=== PATIENT | female | born 1980 | race African-American/Black ===

== ENCOUNTER 2019-07-06 00:23 | Emergency (ER) | payer SELFPAY ==
[~2019-07-06] VITALS: Ht 165.1 cm; Wt 69.0 kg
[2019-07-06 00:26] VITALS: BP 128/75
[2019-07-06] MEDS ORDERED: ACETAMINOPHEN 325MG TABLET PO ONE (02:45)
== END 2019-07-06 11:09 | disposition left against medical advice (07) ==
LOC: ER 00:23
DX: R60.0 Localized edema (principal); Z59.0 Homelessness; M25.572 Pain in left ankle and joints of left foot; M79.89 Other specified soft tissue disorders
CPT/HCPCS: 73610; 93970; 99284

== ENCOUNTER 2020-12-15 12:32 | Emergency (ER) | payer MEDICAID ==
[~2020-12-15] VITALS: Ht 180.3 cm; Wt 75.0 kg
[2020-12-15] MEDS ORDERED: HYDROCODONE/ACETAMINOPHEN 5/325MG TABLET PO PRN (13:30)
[2020-12-15] MEDS ORDERED: CEPHALEXIN 250MG CAPSULE PO ONE (13:30)
[2020-12-15 16:08] LABS: EOSINOPHILS % 2.5 % (0.0-5.0); HEMATOCRIT. 29.9 % (36.0-48.0); HEMOGLOBIN. 10.2 g/dL (12.0-16.0); LYMPHOCYTES % 40.3 % (20.0-50.0); MEAN CORPUSCULAR HEMOGLOBIN 32.7 pg (28.0-32.0); MEAN CORPUSCULAR VOLUME 95.5 fL (81.0-99.0); MEAN PLATELET VOLUME 7.7 fl (7.4-10.4); MONOCYTES % 10.9 % (2.0-8.0); NEUTROPHILS % 45.3 % (40.0-76.0); PLATELET 336 x1000/uL (130-400); RED BLOOD CELL COUNT 3.13 mill/uL (4.2-5.4); RED CELL DISTRIBUTION WIDTH 21.8 % (11.6-14.6)
[2020-12-15 16:13] LABS: CHLORIDE 107 mEq/L (98-107)
[2020-12-15 16:18] LABS: C REACTIVE PROTEIN QUANT 2.8 mg/L (0.0-3.0)
[2020-12-15] MEDS ORDERED: CEPH500T MT (16:21)
[2020-12-15] MEDS ORDERED: POTASSIUM CHLORIDE 20MEQ TABLET SR PO ONE (16:30)
[2020-12-15 16:37] LABS: CLARITY URINE CLOUDY (CLEAR); COLOR URINE DARK YELLOW (YELLOW); KETONES URINE TRACE (NEGATIVE); LEUKOCYTE ESTERASE URINE TRACE (NEGATIVE); NITRITE URINE NEGATIVE (NEGATIVE); OCCULT BLOOD URINE NEGATIVE (NEGATIVE); PH URINE 6.5 (4.5-8.0); PROTEIN URINE 1+ (NEGATIVE); SPECIFIC GRAVITY URINE 1.026 (1.005-1.030)
[2020-12-15 16:40] VITALS: BP 116/77
== END 2020-12-15 16:51 | disposition home or self-care (01) ==
LOC: ER 12:54
DX: L97.929 Non-pressure chronic ulcer of unspecified part of left lower leg with unspecified severity (principal); E11.9 Type 2 diabetes mellitus without complications
CPT/HCPCS: 36415; 80048; 81003; 85025; 85651; 86140; 99284; Z7610